=== PATIENT | female | born 1960 | race Caucasian/White ===

== ENCOUNTER → 2017-06-02 | Outpatient (CLI) | payer BC, OTHER ==
[~2017-06-02] VITALS: Ht 175.3 cm; Wt 117.9 kg
[~2017-06-02] MED LIST: CENTRUM SILVER1 EAC4 PO; CLARITIN10 MG PO; FISH OIL 1,001000 M2 PO; MAGNESIUM400 MG PO; NASACORT10.8 ML NASAL; PRESERVISION A1 EAC2 PO; PROTONIX40 M1 PO; SYNTHROID150 MCG PO; VENTOLIN HFA 1818 GM INH; VITAMIN D-32000 UNIT PO; XANAX 0.5 MG0.5 MG PO; ZOCOR 20 MG TAB20 M1 PO
--- NOTE | ~2017-06-02 | P ---
[facility] [place] [address] PROCEDURE REPORT Name: LORY CHERRY Room #: REG [facility]#: [id number] Admission: 06/02/17 Attend Phys: Richie Sandoval MD Discharge: Date of : 60 Report #: [id number] THIS REPORT FOR: //name// CC: Curtis Whitehead DO PREOPERATIVE DIAGNOSIS: Reflux disease. POSTOPERATIVE DIAGNOSES: 1. Mild diffuse erythematous gastritis. 2. Small intermittently seen hiatus hernia. MEDICATIONS: Deep sedation with propofol per anesthesia. SPECIMEN: Biopsies of gastritis. ESTIMATED BLOOD LOSS: 3 mL. PROCEDURE: EGD with biopsy. FINDINGS: Prior to propofol sedation, procedure of upper endoscopy discussed with the patient as well as potential risks and its complications. She indicates she understands and desires to proceed. DESCRIPTION OF PROCEDURE: With the patient in left lateral decubitus position, a [employer] video endoscope was inserted in the cervical esophagus under direct vision without difficulty. Examination of this organ to its entire length revealed normal esophageal mucosa down the squamocolumnar junction. Squamocolumnar junction was inspected and noted to be unremarkable. There was no evidence of Dupree mucosa, strictures or masses. I did not see evidence of erosive esophagitis. Intermittently, a small 2 cm sliding type hiatus hernia was seen. The scope was advanced in the stomach, was examined on end view as well as retroflexed views. There was a pattern of diffuse gastritis with diffuse erythema, but no ulcers or erosions were seen. Upon retroflexion, no mass lesions were seen in the cardia of the stomach. The pylorus, duodenal bulb and postbulbar sweep were inspected and noted to be unremarkable. At that point, the scope was slowly withdrawn and careful circumferential views confirmed the above findings. The patient tolerated the procedure well. CONDITION OF THE PATIENT UPON DISCHARGE: Following procedure, the patient drowsy, arousable and then prepared for colonoscopy. INSTRUCTIONS TO THE PATIENT AND FAMILY AT THE TIME OF DISCHARGE: She has had reflux disease. I do not see evidence of ulcers, erosions or evidence of [facility] [address] [place] [address] PROCEDURE REPORT Name: LORY CHERRY Room #: REG [facility]#: [id number] Admission: 06/02/17 Attend Phys: Richie Sandoval MD Discharge: Date of : 60 Report #: [id number] Dupree at this time. She is to continue her PPI to control of symptoms. She may take an [id number]-zihcryrg H2 liz as needed for breakthrough symptoms. If she should develop symptoms on a regular basis, increasing to twice daily PPI may be indicated. <ELECTRONICALLY SIGNED> By: Richie Sandoval MD 06/08/17 1246 [id number] 1753 Richie Sandoval MD /nt
--- NOTE | ~2017-06-02 | P ---
[facility] [place] [address] PROCEDURE REPORT Name: LORY CHERRY Room #: REG [facility]#: [id number] Admission: 06/02/17 Attend Phys: Richie Sandoval MD Discharge: Date of : 60 Report #: [id number] THIS REPORT FOR: //name// CC: Curtis Srinivasan MD BRIEF HISTORY: This is a 56-year-old woman with history of colon polyps. She was recently found to have uterine cancer with anticipation of hysterectomy in the future. PREOPERATIVE DIAGNOSES: History of colon polyps and history of uterine cancer. POSTOPERATIVE DIAGNOSES: 1. Colon polyps. 2. Moderate sigmoid diverticulosis coli. 3. Internal hemorrhoids. MEDICATIONS: Deep sedation with propofol per anesthesia. SPECIMENS: 1. Polyp at 30 cm. 2. Polyp at 25 cm. ESTIMATED BLOOD LOSS: 3 mL. PROCEDURE: Colonoscopy to cecum and terminal ileum with biopsy. FINDINGS: Prior to propofol sedation, procedure of colonoscopy discussed with the patient as well as potential risks, benefits, and complications. She indicates she understands and desires to proceed. With the patient in left lateral decubitus position, digital examination was completed, which revealed no abnormalities. Subsequently, the [employer] video colonoscope was introduced into the rectum, advanced under direct vision to the cecum. Done with minimal difficulty. The cecum was identified by the ileocecal valve and the appendiceal orifice. I was able to visualize the distal segment of terminal ileum, which was inspected and noted to be unremarkable. At that point, the scope was slowly withdrawn and careful circumferential views obtained including retroflexing the scope in the ascending colon. Upon slow withdrawal of the scope, the prep was noted to be excellent. The mucosa was within normal limits, normal vascular pattern, and normal light reflex. No neoplastic inflammatory lesions were seen until the sigmoid colon was reached. She was noted to have moderately severe diverticular disease without endoscopic evidence of diverticulitis. In addition, 2 flat polyps were seen in the range of about [facility] [address] [place] [address] PROCEDURE REPORT Name: CHERRYLORY Room #: REG [facility].#: [id number] Admission: 06/02/17 Attend Phys: Richie Sandoval MD Discharge: Date of : 60 Report #: [id number] 4-5 mm, 1 at 30 cm and 25 cm, both removed by biopsy. Scope was further withdrawn and no additional polypoid lesions were seen. Scope was withdrawn in the rectum. Upon retroflexion, internal hemorrhoids were seen. Scope was withdrawn. The patient tolerated the procedure well. CONDITION OF THE PATIENT UPON DISCHARGE: Following procedure, the patient drowsy, aroused, conversant and will be discharged home when fully ambulatory. INSTRUCTIONS TO THE PATIENT AND FAMILY AT THE TIME OF DISCHARGE: Two small polyps identified and removed as described above. We will follow up on the path. history, suggest she return in 5 years for followup colon exam. She will return to care of Dr. Srinivasan, Dr. Whitehead, and Dr. Govea for management of her uterine cancer and suggest high fiber diet for the diverticular disease Withdrawal time from the cecum was 12 minutes and 33 seconds. <ELECTRONICALLY SIGNED> By: Richie Sandoval MD 06/08/17 1246 1233 1448 Richie Sandoval MD /nt
--- NOTE | ~2017-06-02 | S ---
[facility] [place] [address] SURGICAL PATH RPT PROCEDURE Name: ELISE COBIANKhalida RAM Room #: REG [facility].#: [id number] Admission: 06/02/17 Date of : 60 Discharge: Report #: [id number] Path Case #: [id number] PATHOLOGY REPORT COLLECTION DATE: 06/02/2017 RECEIVED DATE: 06/02/2017 SUBMITTING PHYS: Dr. Richie Sandoval OTHER PHYS: Dr. Jc Srinivasan SPECIMEN(S) RECEIVED: A.GI biopsy B.Polyp at 30 cm C.Polyp at 25 cm * * * * * * * * * * * * FINAL DIAGNOSIS: A. Gastric mucosa, rule out H. pylori, endoscopic biopsy: - Mild reactive gastropathy. - Negative for intestinal metaplasia or atrophy. - Negative for Helicobacter pylori. B. Polyp, at 30 cm, endoscopic biopsy: - Hyperplastic polyp. - Negative for dysplasia. C. Polyp, at 25 cm, endoscopic biopsy: - Minute tubular adenoma. - Negative for high grade dysplasia. COMMENT: Well controlled Helicobacter pylori immunohistochemical stain performed on block A1 - negative. (IUV:db; 06/05/2017) PATHOLOGIST: Lulu Tripp M.D. REPORT ELECTRONICALLY SIGNED BY: Lulu Tripp M.D. DATE/TIME: 06/05/2017 17:26 * * * * * * * * * * * * GROSS PATHOLOGY: A. Received in formalin labeled "Sue Cobian, biopsy H. pylori" is a 0.8 x 0.6 x 0.2 cm aggregate of valle-brown soft tissue fragment. The specimen is submitted in cassette A1. B. Received in formalin labeled "Sue Cobian, polyp at 30 cm" is a specimen consisting of two portions of pink-valle soft tissue measuring 0.3 x 0.3 x 0.3 cm and 0.3 x 0.2 x 0.1 cm. The specimen is submitted in cassette B1. C. Received in formalin labeled "Sue Cobian, polyp at 25 cm" is a [address] [place] [address] SURGICAL PATH RPT PROCEDURE Name: SUE COBIAN Room #: REG [facility].#: [id number] Admission: 06/02/17 Date of : 60 Discharge: Report #: [id number] Path Case #: [id number] specimen consisting of two portions of pink-valle soft tissue measuring 0.4 x 0.4 x 0.2 cm and 0.2 x 0.2 x 0.1 cm. The specimen is submitted in cassette C1. ([facility] [place]; 06/04/2017) CLINICAL HISTORY: History of polyps, diverticulosis, hemorrhoids. INITIAL CPT CODE(S): A; 88309, 47228 B; 58234 C; 02082 Professional services performed by [facility] at [address], [place] [address] Technical services performed by [facility] at [address] [place] [address]., [address], [place] [address]. [facility] [address] [place] [address] PHONE: [phone] DIRECTOR: Derrek Deluca M.D. * * * END OF REPORT * * *
== END | disposition home or self-care (01) ==
LOC: GI 09:12
DX: Z09 Encounter for follow-up examination after completed treatment for conditions other than malignant neoplasm (principal); K29.60 Other gastritis without bleeding; Z87.19 Personal history of other diseases of the digestive system; D12.5 Benign neoplasm of sigmoid colon; K64.8 Other hemorrhoids; K57.30 Diverticulosis of large intestine without perforation or abscess without bleeding; C55 Malignant neoplasm of uterus, part unspecified; K21.9 Gastro-esophageal reflux disease without esophagitis; K44.9 Diaphragmatic hernia without obstruction or gangrene; F41.9 Anxiety disorder, unspecified; Z87.891 Personal history of nicotine dependence; E78.5 Hyperlipidemia, unspecified; D64.9 Anemia, unspecified; Z98.890 Other specified postprocedural states
CPT/HCPCS: 62110